=== PATIENT | male | born 1965 | race Caucasian/White ===

== ENCOUNTER 2017-07-17 07:53 | Day surgery (SDC) | payer BC ==
[2017-07-12 11:09] VITALS: BMI 30.7
[2017-07-17] MEDS ORDERED: LIDOCAINE HCL/PF 2% SDV 5ML VIAL ONE (07:57)
[2017-07-17] MEDS ORDERED: PROPOFOL 20 ML ONE ×2 (07:57)
[2017-07-17 08:10] VITALS: TEMP 97.7
[2017-07-17 11:44] VITALS: BP 115/77; PULSE 77
--- NOTE | 2017-07-19 12:33 | PATH ---
Surgical Pathology Report Patient Name: ALIVIA MCCLELLAN [facility]. Rec. #: [id number] /Age/Gender: 1965 (Age: 51) / M Account: [id number] Location: ON LICENSE OF [facility]-ENDOSCOPY Taken: 07/17/2017 Received: 07/17/2017 Reported: 07/19/2017 Physicians: Christiano Haas M.D. Specimen(s) Received A: BX DUODENUM B: BX ANTRUM Clinical History GERD, rule out colon cancer Postoperative diagnosis: Rule out celiac disease, gastritis Final Diagnosis A. DUODENUM, BIOPSY: DUODENAL MUCOSA WITH NO PATHOLOGIC CHANGES. NO HISTOLOGIC EVIDENCE OF GLUTEN SENSITIVE ENTEROPATHY (CELIAC SPRUE) IDENTIFIED. B. STOMACH, ANTRUM, BIOPSY: MODERATE CHRONIC ACTIVE GASTRITIS. IMMUNOSTAINS FOR H. PYLORI IS POSITIVE (MODERATE NUMBER OF ORGANISMS). Electronically Signed Beau Parekh M.D. Gross Description A. Received in formalin, labeled "duodenum" are 2 cornejo, irregular portions of soft tissue averaging 0.2 cm. in greatest dimension. The specimens are submitted in toto in one cassette. B. Received in formalin, labeled "antrum" are 3 cornejo, irregular portions of soft tissue ranging from 0.2-0.3 cm. in greatest dimension. The specimens are submitted in toto in one cassette. 07/18/2017 [facility]07/18/2017
== END 2017-07-17 11:45 | disposition home or self-care (01) ==
LOC: FASU-ENDO 07:53
PROVIDERS: ATTEND Internal Medicine Gastroenterology
PROC: 0DB68ZX Excision of Stomach, Via Natural or Artificial Opening Endoscopic, Diagnostic (ICD-10-PCS; 2017-07-17)
PROC: 0DJD8ZZ Inspection of Lower Intestinal Tract, Via Natural or Artificial Opening Endoscopic (ICD-10-PCS; principal; 2017-07-17 10:45)
PROC: 0DB98ZX Excision of Duodenum, Via Natural or Artificial Opening Endoscopic, Diagnostic (ICD-10-PCS; 2017-07-17 10:45)
DX: Z12.11 Encounter for screening for malignant neoplasm of colon (principal); K29.50 Unspecified chronic gastritis without bleeding; B96.81 Helicobacter pylori [H. pylori] as the cause of diseases classified elsewhere
CPT/HCPCS: 88305-TC; 88342-TC